=== PATIENT | male | born 2000 | race Caucasian/White ===

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

== ENCOUNTER 2023-05-11 14:02 | Emergency (ER) | payer MEDICAID ==
[~2023-05-11] VITALS: Ht 167.6 cm; Wt 94.1 kg
[2023-05-11 14:09] VITALS: TEMP 98.5
[2023-05-11] MEDS ORDERED: ACETAMINOPHEN/CODEINE 300-30 MG TABLET PO ONE (15:15)
[2023-05-11] MEDS ORDERED: KETOROLAC TROMETHAMINE 60 MG/2 ML VIAL IM ONE (15:15)
[2023-05-11] MEDS ORDERED: ACET-2080 PO (15:48)
[2023-05-11] MEDS ORDERED: IBUP-1554 PO (15:48)
[2023-05-11 16:19] VITALS: BP 138/72; PULSE 76; RESP 18
== END 2023-05-11 16:32 | disposition home or self-care (01) ==
LOC: EMS 14:07
DX: S83.91XA Sprain of unspecified site of right knee, initial encounter (principal); X50.1XXA Overexertion from prolonged static or awkward postures, initial encounter; Y93.66 Activity, soccer; Y92.89 Other specified places as the place of occurrence of the external cause; Y99.8 Other external cause status
CPT/HCPCS: 99283; 29505; 73562; 96372; J1885